=== PATIENT | female | born 1970 | race Caucasian/White ===

== ENCOUNTER 2016-08-01 19:08 | Emergency (ER) | payer MEDICAID ==
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
[2016-08-01 20:43] LABS: % IMMATURE GRANULYOCYTES 0.3 % (0.0-1.1); ABSOLUTE IMMATURE GRANULOCYTES 0.02 10^3/uL (0.00-0.10); ADD DIFF? NO; ADD MORPH? NO; ADD SCAN? NO; ATYPICAL LYMPHOCYTE FLAG 10 (0-99); FRAGMENT RBC FLAG 0 (0-99); HEMATOCRIT 38.1 % (38.0-47.0); HEMOGLOBIN 12.1 g/dL (12.6-16.3); LEFT SHIFT FLG 0 (0-99); LIPEMIA HEMOLYSIS FLAG 80 (0-99); MEAN CELL HEMOGLOBIN 24.3 pg (27.9-34.1); MEAN CELL HEMOGLOBIN CONCENTR. 31.8 g/dL (32.4-36.7); MEAN CELL VOLUME 76.7 fL (81.5-99.8); MEAN PLATELET VOLUME 10.5 fL (8.7-11.7); PLATELET CLUMPS FLAG 0 (0-99); PLATELET COUNT 148 10^3/uL (150-400); RED BLOOD CELL COUNT 4.97 10^6/uL (4.18-5.33); RED CELL DISTRIBUTION WIDTH 18.5 % (11.5-15.2)
[2016-08-01] MEDS ORDERED: HYDROmorphONE/DILAUDID 1 MG/ML SYR IVP ONE (20:52)
[2016-08-01] MEDS ORDERED: NS 1,000 ML IV ONE (20:52)
[2016-08-01 20:55] LABS: ANION GAP 23 mEq/L (8-16); CALCIUM 8.8 mg/dL (8.5-10.4); CARBON DIOXIDE 17 mEq/l (22-31); CHLORIDE 103 mEq/L (97-110); CREATININE 0.6 mg/dL (0.6-1.0); GLOMERULAR FILTRATION RATE > 60; GLUCOSE 80 mg/dL (70-100); POTASSIUM 4.5 mEq/L (3.5-5.2); SODIUM 143 mEq/L (134-144)
[2016-08-01] MEDS ORDERED: PROPARACAINE 0.5% 15 ML OPHT DROP ONE (20:58)
[2016-08-01] MEDS ORDERED: HYDROmorphONE/DILAUDID 1 MG/ML SYR IM ONE (21:00)
[2016-08-01 21:44] LABS: ETHANOL SERUM 356 mg/dL (0-10)
[2016-08-01] MEDS ORDERED: traMADol 50 MG TAB ONE (21:56)
[2016-08-01 22:28] VITALS: BP 115/89; PULSE 99; RESP 20; TEMP 97.7; O2SAT 92
== END 2016-08-01 22:19 | disposition home or self-care (01) ==
DX: S02.80XA Fracture of other specified skull and facial bones, unspecified side, initial encounter for closed fracture (principal); H40.9 Unspecified glaucoma; F17.200 Nicotine dependence, unspecified, uncomplicated; Y09 Assault by unspecified means
CPT/HCPCS: G0480; J1170

== ENCOUNTER 2016-08-02 03:55 | Emergency (ER) | payer MEDICAID ==
[2016-08-02 04:02] VITALS: BP 132/73; PULSE 142; RESP 18; TEMP 98.4; O2SAT 96
[2016-08-02] MEDS ORDERED: traMADol 50 MG TAB PO ONE (04:18)
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
== END 2016-08-02 04:44 | disposition home or self-care (01) ==
DX: S05.92XD Unspecified injury of left eye and orbit, subsequent encounter (principal); F17.200 Nicotine dependence, unspecified, uncomplicated; S02.2XXD Fracture of nasal bones, subsequent encounter for fracture with routine healing; W18.39XD Other fall on same level, subsequent encounter